=== PATIENT | female | born 1990 | race Two or more races ===

== ENCOUNTER 2017-06-27 22:23 | Emergency (ER) | payer MEDICAID ==
[~2017-06-27] VITALS: Ht 154.9 cm; Wt 86.2 kg
[2017-06-28 01:30] VITALS: BP 121/64
[2017-06-28] MEDS ORDERED: TETANUS-DIPTH-ACEL PERTUSSIS 0.5ML SYRG IM ONE (01:30)
== END 2017-06-28 01:59 | disposition home or self-care (01) ==
LOC: EDSEX 22:28 → ER 22:28
DX: T63.2X1A Toxic effect of venom of scorpion, accidental (unintentional), initial encounter (principal); Y92.89 Other specified places as the place of occurrence of the external cause
CPT/HCPCS: 90471; 90715